=== PATIENT | male | born 1990 | race Caucasian/White ===

== ENCOUNTER → 2021-01-19 | Outpatient (CLI) | payer OTHER ==
--- NOTE | 2021-01-21 07:10 | REP ---
INDICATION: PAIN IN TESTIS, SCROTAL LESION COMPARISON: None. TECHNIQUE: Dow scale and color Doppler evaluation using linear and curved array transducer with color Doppler evaluation. FINDINGS: The bilateral testicles are normal in contour, size, echogenicity, vascularity and overall appearance. There is no evidence for intratesticular mass lesion, infectious/inflammatory process, or torsion. Bilateral epididymal cysts are identified measuring up to 5 mm on the right and single left-sided epididymal cyst measuring 19 mm. Small simple benign appearing right-sided hydrocele is identified. In the area of maximal tenderness there is a 10 x 8 x 9 mm rounded complex area adjacent to the vas deferens which cannot be further characterized by ultrasound despite surrounding vascularity, the lesion itself appears avascular and may represent small hematoma given the patient's history of recent trauma. Right testicle measures 4.6 x 2.2 x 3.4 cm. Left testicle measures 4.6 x 2.2 x 3.0 cm. IMPRESSION: 1. Relatively benign nonacute findings as described above. 2. Small 10 mm complex rounded area within the right hemiscrotum adjacent to the vas deferens and spermatic cord which is nonspecific by ultrasound appearance, differential diagnosis may include hematoma given the patient's history of recent trauma. Consider 3-6 month follow-up examination to evaluate for resolution. <Electronically signed by Keven Taylor > 01/21/21 0716
== END ==
LOC: M RAD 11:21
PROVIDERS: ATTEND Family Medicine
DX: N50.811 Right testicular pain (principal); R93.811 Abnormal radiologic findings on diagnostic imaging of right testicle

== ENCOUNTER → 2023-02-04 | Outpatient (CLI) | payer OTHER | LOC: M SOG 07:50 | PROVIDERS: ATTEND Physician Assistant | DX: M79.645 Pain in left finger(s) (principal) ==

== ENCOUNTER → 2023-02-26 | Outpatient (CLI) | payer OTHER | LOC: M PLAIMG 06:48 | PROVIDERS: ATTEND Orthopaedic Surgery Hand Surgery | DX: M79.645 Pain in left finger(s) (principal) ==